=== PATIENT | male | born 1955 | race Caucasian/White ===

== ENCOUNTER 2017-04-09 08:09 | Outpatient (CLI) | payer OTHER ==
[2017-04-11 07:28] LABS: Antinuclear AB Negative (Negative)
== END 2017-04-09 08:10 | disposition home or self-care (01) ==
LOC: BURLAB 08:09
PROVIDERS: ATTEND Student in an Organized Health Care Education/Training Program
DX: G60.3 Idiopathic progressive neuropathy (principal)
CPT/HCPCS: 36415; 86038

== ENCOUNTER 2019-08-17 09:31 | Outpatient (CLI) | payer OTHER ==
--- NOTE | 2019-08-17 16:19 | ULT ---
RIGHT UPPER QUADRANT ULTRASOUND: 08/17/2019 COMPARISON: Study from May 2016. FINDINGS: The liver is mildly enlarged, measuring about 16 cm in length, which is the same as before. It is a l ittle more echo-dense suggesting diffuse fatty infiltration portable venous flow is toward the liver, as would be normal. No dilated ducts or hepatic masses are shown. The patient is post cholecystectom y. The common bile duct is about 6 mm in diameter, which is normal. The right kidney has a small numb er of images of it but all appear normal with the length measuring 11.3 cm. The pancreas is mostly ob scured by bowel gas. It seemed a little more echogenic than usual, a nonspecific finding. IMPRESSION: 1. No acute abdominal findings. 2. Mild hepatic enlargement which has not changed since 2016. Presumed diffuse fatty infiltration. POS: HOME
== END 2019-08-17 09:32 | disposition home or self-care (01) ==
LOC: BURULT 09:31
PROVIDERS: ATTEND Nurse Practitioner Family
DX: R94.5 Abnormal results of liver function studies (principal); R16.0 Hepatomegaly, not elsewhere classified
CPT/HCPCS: 76705

== ENCOUNTER 2020-07-24 15:34 | Outpatient (CLI) | payer MEDICARE, OTHER ==
[2020-07-24 21:59] LABS: ALT (SGPT) 57 U/L (8-55); AST (SGOT) 42 U/L (5-34); Albumin 4.2 g/dL (3.4-4.8); Alkaline Phosphatase 83 U/L (40-110); Anion Gap 15 mmol/L (10-20); BUN (Urea Nitrogen) 19 mg/dL (8.4-25.7); Bilirubin, Total 1.1 mg/dL (0.2-1.2); Calc. Creatinine Clearance 0 mL/min (70-130); Calcium 9.4 mg/dL (7.8-10.44); Carbon Dioxide 26 mmol/L (23-31); Cardiac Risk 4.7 (Less than 4.5); Chloride 104 mmol/L (98-107); Cholesterol 136 mg/dl (< 200 Desired); Estimated GFR-MDRD 63; Globulin 2.5 g/dL (2.4-3.5); Glucose 76 mg/dL (80-115); HDL Cholesterol 29 mg/dL (>60 Neg Risk); LDL Cholesterol, Calculated 78 mg/dL; Potassium 4.7 mmol/L (3.5-5.1); Protein, Total 6.7 g/dL (5.8-8.1); Sodium 140 mmol/L (136-145); Triglycerides 143 mg/dL (Less than 150)
[2020-07-24 22:17] LABS: Band 8 % (5-11); Eosinophils 6 % (0-10); Hemoglobin 14.8 g/dL (14.0-18.0); Lymphocytes 44 % (21-51); MDiff Complete? YES; Mean Corpuscular HGB CONC 33.9 g/dL (32.0-36.0); Mean Corpuscular Hemoglobin 34.3 pg (27.0-31.0); Mean Platelet Volume 8.8 fL (7.4-10.4); Monocytes 22 % (0-10); Neutrophil 20 % (42-75); Platelet Count 153 thou/uL (130-400); Platelet Morphology Comment Appears Adequate; RBC Distribution Width 12.1 % (11.5-14.5); RBC Morphology Normal; Red Blood Cell (RBC) Count 4.32 mill/uL (4.70-6.10); White Blood Cell (WBC) Count 2.5 thou/uL (4.8-10.8)
[2020-07-24 22:18] LABS: Hep C IgG Ab Non-Reactive (NonReactive); Hep C Index 0.08 S/CO (0-0.79); Thyroid Stimulating Hormone 1.1309 uIU/mL (0.35-4.94)
== END 2020-07-24 15:35 | disposition home or self-care (01) ==
LOC: HPCALD 15:34
PROVIDERS: ATTEND Family Medicine
DX: Z11.59 Encounter for screening for other viral diseases (principal); I10 Essential (primary) hypertension
CPT/HCPCS: 80053; 80061; 84443; 85025; 86803